=== PATIENT | female | born 1945 | race Caucasian/White ===

== ENCOUNTER → 2021-05-09 | Outpatient (CLI) | payer MEDICARE, BC ==
[~2021-05-09] MED LIST: IOPAMIDOL 370 MG/ML 200 ML INFUS..BTL INJ ONE; SODIUM CHLORIDE 0.9% 50ML 50 ML ONE
[2021-05-09 08:25] LABS: CREATININE, SERUM 0.71 mg/dL (0.57-1.11)
== END ==
LOC: CT 07:28
PROVIDERS: ATTEND Internal Medicine Gastroenterology
DX: Z12.11 Encounter for screening for malignant neoplasm of colon (principal); R19.7 Diarrhea, unspecified; K92.1 Melena; Z80.0 Family history of malignant neoplasm of digestive organs
CPT/HCPCS: 36415; 74177; 82565; 84520; Q9967